=== PATIENT | male | born 1950 | race Caucasian/White ===

== ENCOUNTER 2020-03-01 20:33 | Outpatient (REF) | payer MEDICARE, SELFPAY ==
[2020-03-01 21:10] LABS: Bilirubin Negative (Negative); Blood Trace-intact (Negative); Clarity Clear (Clear); Glucose Negative (Negative); Ketones Negative (Negative); Leukocyte Esterase Negative (Negative); Nitrite Negative (Negative); Urobilinogen 0.2 EU/dL (Up TO 0.2); pH 6.5 (5-8)
[2020-03-01 21:19] LABS: Bacteria Negative HPF (Negative); Casts Negative LPF (Negative); Crystals Negative HPF (Negative); Epithelial Cells Rare HPF (Negative); Mucus Negative (Negative); RBC 0-2 HPF (0-2); WBC 0-2 HPF (0-5)
[2020-03-01 21:20] LABS: C & S Indicated? No
== END 2020-03-01 20:53 ==
LOC: NCHCN 20:33
PROVIDERS: PCP Family Medicine; Visit Provider Physician Assistant
DX: R31.21 Asymptomatic microscopic hematuria (principal)
CPT/HCPCS: 81003; 81015

== ENCOUNTER 2020-07-15 02:44 | Outpatient (CLI) | payer MEDICARE, SELFPAY ==
[2020-07-15 12:38] LABS: Abs Immature Grans 0.01 10^3/uL (0.0-0.06); Absolute Basophil Count 0.03 10^3/uL (0.0-0.2); Absolute Eosinophil Count 0.11 10^3/uL (0.0-0.7); Absolute Lymphocyte Count 1.17 10^3/uL (1.2-3.4); Absolute Monocyte Count 0.47 10^3/uL (0.1-0.8); Basophils % 0.6; HCT 50.8 % (40.0-50.0); HGB 16.8 g/dL (13.5-17.5); Immature Grans % 0.2; Lymphocytes % 21.7; MCHC 33.1 % (32.0-36.0); MCV 90.7 fL (80-95); Monocytes % 8.7; Neutrophils % 66.8; Nucleated RBC 0 %; Platelet Count 180 10^3/uL (130-400); RDW 13.2 % (11.8-14.1); RDW-SD 44.6 fL; WBC 5.39 10^3/uL (4.4-10.8)
[2020-07-15 13:04] LABS: ALT 25 U/L (16-63); AST 14 U/L (15-37); Albumin 3.7 g/dL (3.4-5.0); Alkaline Phosphatase 90 U/L (46-116); Anion Gap 7.1 mmol/L (3-11); BUN 18 mg/dL (7-18); Bilirubin, Total 0.6 mg/dL (0.2-1.0); CO2 29.9 mmol/L (21.0-32.0); CREATININE 1.08 mg/dL (0.70-1.30); Calcium 9.2 mg/dL (8.5-10.1); Chloride 107 mmol/L (98-107); Glucose 100 mg/dL (74-106); Potassium 4.3 mmol/L (3.5-5.1); Sodium 144 mmol/L (136-145); Total Protein 6.5 g/dL (6.4-8.2)
== END 2020-07-15 03:04 ==
PROVIDERS: PCP Family Medicine; Visit Provider Family Medicine
DX: F31.9 Bipolar disorder, unspecified (principal); Z79.899 Other long term (current) drug therapy
CPT/HCPCS: 36415; 80053; 85025

== ENCOUNTER 2022-07-27 12:28 | Outpatient (REF) | payer MEDICARE, SELFPAY ==
[2022-07-27 15:13] LABS: Abs Immature Grans 0.01 10^3/uL (0.0-0.06); Absolute Basophil Count 0.03 10^3/uL (0.0-0.2); Absolute Lymphocyte Count 1.15 10^3/uL (1.2-3.4); Absolute Monocyte Count 0.51 10^3/uL (0.1-0.8); Absolute Neutrophil Count 3.78 10^3/uL (1.2-6.7); Basophils % 0.5; Eosinophils % 1.8; HGB 16.6 g/dL (13.5-17.5); Immature Grans % 0.2; Lymphocytes % 20.6; MCH 30.1 pg (27.0-33.0); MCHC 34.6 % (32.0-36.0); MCV 87 fL (80-95); MPV 9.8 fL (8.0-11.0); Monocytes % 9.1; Neutrophils % 67.8; Platelet Count 185 10^3/uL (130-400); RBC 5.51 10^6/uL (4.36-5.78); RDW 12.8 % (11.8-14.1); RDW-SD 40.7 fL; WBC 5.58 10^3/uL (4.4-10.8)
[2022-07-27 15:37] LABS: ALT 19 U/L (16-63); AST 17 U/L (15-37); Albumin 3.9 g/dL (3.4-5.0); Alkaline Phosphatase 95 U/L (46-116); BUN 18 mg/dL (7-18); Bilirubin, Total 0.8 mg/dL (0.2-1.0); CREATININE 0.9 mg/dL (0.70-1.30); Calcium 9.3 mg/dL (8.5-10.1); Chloride 106 mmol/L (98-107); Estimated GFR 92.45 (mL/min/1.73m2); Glucose 102 mg/dL (74-106); Potassium 4.4 mmol/L (3.5-5.1); Sodium 141 mmol/L (136-145); Total Protein 6.5 g/dL (6.4-8.2)
[2022-07-27 17:03] LABS: VALPROIC ACID < 3 ug/mL
== END 2022-07-27 12:29 | disposition home or self-care (01) ==
LOC: NCHCN 12:28
PROVIDERS: Visit Provider Family Medicine
DX: F31.9 Bipolar disorder, unspecified (principal)
CPT/HCPCS: 80053; 80164; 85025

== ENCOUNTER 2024-07-07 02:38 | Outpatient (CLI) | payer MEDICARE, SELFPAY ==
[2024-07-07 12:29] LABS: Anion Gap 5.4 mmol/L (3-11); BUN 16 mg/dL (7-18); CO2 30.6 mmol/L (21.0-32.0); Calcium 9.3 mg/dL (8.5-10.1); Chloride 108 mmol/L (98-107); Estimated GFR 80.47 (mL/min/1.73m2); Glucose 103 mg/dL (74-106); HCT 48.5 % (40.0-50.0); HGB 16.5 g/dL (13.5-17.5); MCV 88 fL (80-95); MPV 9.6 fL (8.0-11.0); Platelet Count 158 10^3/uL (130-400); Potassium 4.4 mmol/L (3.5-5.1); RDW-SD 41.8 fL; Sodium 144 mmol/L (136-145); WBC 4.93 10^3/uL (4.4-10.8)
== END 2024-07-07 02:39 | disposition home or self-care (01) ==
LOC: LOS 02:38
PROVIDERS: PCP Family Medicine; Visit Provider Family Medicine
DX: R53.83 Other fatigue (principal); E87.1 Hypo-osmolality and hyponatremia
CPT/HCPCS: 36415; 80048; 85027

== ENCOUNTER → 2025-01-08 14:03 | Outpatient (BNVA) | payer MEDICARE, SELFPAY | PROVIDERS: PCP Family Medicine; Referring Provider Family Medicine; Visit Provider Surgery | DX: R22.1 Localized swelling, mass and lump, neck (principal) | CPT/HCPCS: 99203 ==

== ENCOUNTER 2025-02-10 07:02 | Day surgery (SDC) | payer MEDICARE, SELFPAY ==
--- NOTE | 2025-02-09 19:36 | HPE_ITS ---
Assessment and Plan Assessment and plan (1) Lipoma: Status: Acute Assessment and plan: We reviewed the plan for excision and closure of this likely lipoma. Kj had the opportunity to ask any new questions. He affirmed his informed consent today and we can proceed with excision as planned. History of Present Illness History of Present Illness Chief Complaint: neck lipoma Narrative: Kj is 74 years old, is here with a mass on the posterior central portion of his neck. It has been there for probably about a decade, and has increased in size over time. It is not exactly painful, but he does get a little bit of sharp neck discomfort when he turns and assumes some positions. He would like the mass excised PFSH All Active Problems Lipoma (Acute) Impacted cerumen (Acute) Depression (Chronic) Bipolar 1 disorder (Chronic 12/02/14) Suspect bipolar II, however Asymptomatic microscopic hematuria (Chronic) Glaucoma (Chronic) Tinnitus (Acute) Neck mass (Acute) Medical History Shingles (herpes zoster) polyneuropathy Family History Father Depression Social History Smoking/Tobacco Use Status: Never Smoking risk assessment performed?: Yes Alcohol Intake: current Alcohol Intake frequency: holidays/special occasions only Drug use: Never Substance use type: does not use Counseling given: No Adopted: No Caregiver/Support person: No Foster care: No Household members: spouse Housing: house Number of Children: 1 number of grandchildren: 0 Communication Needs: None Education Level: vocational Do you need help understanding health information?: Never Pets and animals: Yes (4) Pets and animals: dog(s) Do you think of yourself as: straight/heterosexual Current gender identity: male What is your relationship status?: How often do you talk on the phone with friends or family?: three or more times per week Do you belong to any clubs or organized social groups?: decline to answer Panel score (0-1 are the most socially isolated patients): 2 What type of physical activity do you participate in: weight lifting and other Details: hiking Duration: 45-60 minutes/day Frequency: daily Brenda/Religious: Congregational Special brenda needs: Yes (no animal testing + no fetus testing) Seatbelt use: always Drive intox or ride w/intox petrol tanker driver: No Do you feel safe at home: Yes Do you feel safe in your relationship?: Yes Meds Allergies and Home Medications Allergies Allergy/AdvReac Type Severity Reaction Status Date / Time aspirin Allergy Intermediate Rash if he Unverified 02/10/25 07:21 takes it when he has a virus Penicillins Allergy Intermediate Rash Unverified 02/10/25 07:21 lamotrigine AdvReac Severe Skin Rash Verified 02/10/25 07:21 Home Medications ?Medication ?Instructions ?Recorded ?Confirmed ?Type brimonidine 0.2 %-timolol 0.5 % 1 drp ophthalmic (eye) DAILY Eye 06/06/21 02/10/25 History eye drops (Combigan) pressure divalproex 250 mg tablet,delayed 250 mg PO TID #270 ta b-caps 07/01/24 02/10/25 Rx release (Depakote) Exam Const General: cooperative, healthy appearing and not in acute distress Neck Neck: normal visual inspection, no lymphadenopathy and supple Resp Effort & Inspection: normal respiratory effort Auscultation: clear to auscultation bilaterally Cardio Jugular venous pressure: no JVD Rate: regular rate Rhythm: regular rhythm Heart Sounds: S1 normal and S2 normal GI Inspection: normal to inspection Palpation: soft, no guarding, no hernias and nontender Percussion: normal to percussion Auscultation: normal bowel sounds Skin Other: Rubbery slightly mobile mass on the back of the neck. Neuro General: patient alert, patient awake and patient oriented x3 Psych Appearance: grossly normal
--- NOTE | 2025-02-09 19:40 | W.PM.DSUDISC ---
Date of service: 02/10/25 Discharge Plan Disposition Patient Disposition: Home Condition: Good Discharge Details Reason For Visit: lipoma excision Attending Provider: Jhon Smith Primary Care Provider: Fareed Cobos Home Meds and New Rx's Prescriptions: Continued divalproex [Depakote] 250 mg tablet,delayed release (DR/EC) 250 mg PO TID Qty: 270 3RF brimonidine-timolol [Combigan] 0.2-0.5 % drops 1 drp ophthalmic (eye) DAILY Discharge Instructions Additional Instructions: Kj, was great seeing you today, and I hope you feel well after the procedure. Things went very smoothly. I was able to remove this lipoma without much difficulty today. It did go down to the muscular layer, but was not actually involved in the muscles. As you can imagine, based on the size, there is a fair pocket left behind. I did my best to close all of this down with different layers of sutures, but I would not be surprised if you have some fluid that drains out from it over the next few days. You can leave this Band-Aid in place until tomorrow. At that point, remove it, and shower as you normally would. You should wash the incision with warm soapy water and pat it dry. Replacing a simple bandage in case there is any drainage over the next few days is very reasonable. If the incision does remain dry, then you do not necessarily need a Band-Aid in place. You should wash it at least once per day. I have gone ahead and made a follow-up visit in our office on the sixth at 10 AM. Expect to get some bruising over the incision in the next few days. That is extremely common and nothing to worry about. Ice packs over top of the bandages will also prove very helpful. If you need anything, or have any questions at all, please do not hesitate to ask, otherwise we look forward to seeing you in your postoperative visit. 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 Resume all of your regular medications. 2. Use ice packs over the icision to help with pain and swelling. 3. Alternate over the counter tylenol and ibuprofen every 6 hours. Then use as needed. 4. Leave bandage in place for 24 hours, then remove. 5. Shower with warm soapy water. Pat dry. Use a bandaid if needed to protect your clothing. 6. No soaking or tub baths until I see you in the office. 7. No heavy lifting until I see you in the office. 8. Call the office (or go directly to the emergency room after hours) if you notice any of the following: Develop chills (warm to touch), or if you have a thermometer and your temperature is above 101 Difficulty breathing or difficultly swallowing Persistent vomiting Any bleeding ? exceeding one tablespoon 9. Call your physician if the site where your intravenous was started becomes red, swollen, painful, and warm to touch. Referrals: Jhon Smith MD [ [facility] STAFF PHYSICIAN, Surgery] - 02/18/25 10:00 am Activity:: Activity as Tolerated Remove Dressings/Wound Care:: 24 hours Shower/Bathe:: 24 hours Diet:: As Tolerated Discharge Orders Discharge Orders: Discharge Order (Routine); Ordered 02/09/25 Ordered By: Jhon Smith DS: Diagnosis Discharge Diagnosis (1) Lipoma: Status: Acute Asessment and Plan: Outpatient follow-up for suture removal
--- NOTE | 2025-02-09 19:42 | ROE_ITS ---
Operative Note Operative Note PRE-OP DIAGNOSIS: Lipoma POST-OP DIAGNOSIS: same PROCEDURE: excision and closure of lipoma from neck SURGEON: Jhon Smith EXTRACTIONS TECHNOLOGIST: Lavinia Roman ANESTHESIA TYPE: Local By Surgeon and General LMA/ETT Refer to Anesthesia Record ESTIMATED BLOOD LOSS: 10 PATHOLOGY: other (Lipoma) COMPLICATIONS: None Patient was transported to: PACU Patient's condition: stable Indications: Kj is a 74-year-old male with what appears to be symptomatic lipoma at the base of his neck Findings: Serpiginous lipoma Procedure Description: I met with Kj and his in the preoperative area, and we reviewed the plan for surgery. He had the chance to ask any other questions. The agreed-upon site was marked, and then we moved back to the operating room. General endotracheal anesthesia was initiated on the stretcher, and Kj was rolled into the prone position on the OR table. He was padded and supported appropriately. All points of contact were checked and seemed safe. Small amount of hair was trimmed from the base of the neck to expose the surgical site. The neck was the n prepped and draped. I anesthetized the skin with local anesthetic establishing a generous field block. Next, over top of the lipoma, I made a 6 cm incision. I dissected down through the subcutaneous tissues sharply encountering the capsule of the lipoma. Careful dissection was performed around the edge to liberate it from the surrounding soft tissues. There were some serpiginous areas that extended slightly medially and inferiorly. Again, great care was taken to ensure that the entire lipoma was excised. It was passed off the field and will be sent to pathologist for permanent sectioning. Clinical features, however, did seem most most consistent with a lipoma. The site was then irrigated. It was hemostatic. Interrupted Vicryl stitches were used to obliterate the space, and the skin was closed with interrupted Prolene's prior to bandaging. Kj was then rolled back to the supine position, extubated, and transferred to the recovery unit. Date of Procedure: 02/10/25
--- NOTE | 2025-02-09 19:50 | ANES.PREOP_ITS ---
General Info Date of Service Date Performed: 02/10/25 Height: 5 ft 6.25 in Weight: 72.121 kg Body Mass Index (BMI): 25.4 Surgical Procedure: Operation Date: 02/10/25 08:40 Proposed Procedure Side Surgeon p Excision Lipoma on Neck Jhon Smith MD Meds Allergies and Home Medications Allergies Allergy/AdvReac Type Severity Reaction Status Date / Time aspirin Allergy Intermediate Rash if he Unverified 02/10/25 07:21 takes it when he has a virus Penicillins Allergy Intermediate Rash Unverified 02/10/25 07:21 lamotrigine AdvReac Severe Skin Rash Verified 02/10/25 07:21 Home Medication ?Medication ?Instructions ?Recorded brimonidine 0.2 %-timolol 0.5 % 1 drp ophthalmic (eye) DAILY Eye 06/06/21 eye drops (Combigan) pressure divalproex 250 mg tablet,delayed 250 mg PO TID #270 ta b-caps 07/01/24 release (Depakote) Current Visit Medications: Current Medications Generic Name Dose Route Start Last Admin Trade Name Shaylee PRN Reason Stop Dose Admin Acetaminophen 1,000 mg 02/10/25 06:00 Acetaminophen 500 Mg Tab PO 02/10/25 23:59 PREOP ARIK Gabapentin 600 mg 02/10/25 06:00 Gabapentin 300 Mg Cap PO 02/10/25 23:59 PREOP ARIK Ringer's Solution 1,000 mls @ 80 mls/hr 02/10/25 06:00 IV 02/10/25 23:59 INFUSION ARIK Cefazolin Sodium/Dextrose 2 gm in 50 mls @ 100 mls/hr 02/10/25 06:00 Ancef Duplex IVPB 02/10/25 23:59 PREOP ARIK IV Miscellaneous Supplies 1 each 02/10/25 06:00 Iv Access IV 02/10/25 23:59 DIRECTED ARIK Sodium Chloride 0 ml 02/10/25 06:00 Normal Saline Flush 10 Ml Syr IV 02/10/25 23:59 PRN PRN Sodium Chloride 0 ml 02/10/25 06:00 Normal Saline 10 Ml Vial IJ 02/10/25 23:59 DIRECTED PRN Sterile Water 0 ml 02/10/25 06:00 Water,Injection,Sterile 10 Ml Vial IJ 02/10/25 23:59 DIRECTED PRN Tramadol HCl 50 mg 02/09/25 19:43 Tramadol 50 Mg Tab PO 03/11/25 19:42 Q6H PRN PRN Pain PFSH Active Problems Active Problems: Problem Status Onset Code Lipoma Acute D17.9 Impacted cerumen Acute H61.20 Depression Chronic F32.A Bipolar 1 disorder Chronic 12/02/14 F31.9 Asymptomatic microscopic hematuria Chronic R31.21 Glaucoma Chronic H40.9 Tinnitus Acute H93.19 Neck mass Acute R22.1 Medical History Medical History Shingles (herpes zoster) polyneuropathy Tobacco Smoking/Tobacco Use Status: Never Passive smoking exposure: No Alcohol Alcohol Intake: current Alcohol intake frequency: holidays/special occasions only Substance Use Substance use: Never Vital Signs and Lab Results Vital Signs Most Recent Vital Signs in EMR: Temp Pulse Resp BP Pulse Ox 36 C L 80 16 179/78 H 99 02/10/25 07:05 02/10/25 07:05 02/10/25 07:05 02/10/25 07:05 02/10/25 07:05 Anesthesia Assessment and Plan Anesthesia History Personal History: Unknown Anesthesia History Family History: No Family History of Anesthesia Complications Exercise Tolerance Exercise Tolerance: Metabolic Equivalents>4 Cardiac & Pulmonary Exam Cardiac Exam: Normal S1/S2 Heart Sounds Pulmonary Exam: Clear Bilateral Breath Sounds Implantable Cardiac Device Does patient have a Pacemaker or an ICD?: No Airway Exam Known Difficult Airway: No Mallampati Class: 3 Mouth Opening: Normal (> 3cm) Thyromental Distance: Greater than 3 cm Neck Range of Motion: Full ROM Neck Circumference: Normal Teeth Condition: Normal Dentition ASA Classification ASA Score: ASA 2 Emergency Case?: No NPO Status NPO Status: NPO Clears >2 hours, Solids >8 hours Anesthesia Plan Resuscitation Status: Full Code Anesthesia Technique: General Anesthesia Airway Planned: Endotracheal Tube Monitors Used: Standard Monitors Preoperative Comments:: 74 yo male for neck mass removal. Sig PMHx: bipolar/depression, never smoker, occ EtOH.
[2025-02-10] VITALS (15 sets, daily range): BP systolic 103–179; BP diastolic 54–86; PULSE 55–80; RESP 13–18; TEMP 36–36.6; O2SAT 93–99; BMI 25.4
[2025-02-10] MEDS: Gabapentin 300 MG CAP 600 MG PO (07:25)
[2025-02-10] MEDS: Acetaminophen 500 MG TAB 1000 MG PO (07:25)
[2025-02-10] MEDS: Lactated Ringers 1,000 ML 80 ML IV (07:35)
[2025-02-10] MEDS: ceFAZolin 2 GM/50 ML BAG IVPB (09:30)
[2025-02-10] MEDS: Bupivacaine 0.25% Pres-Free W/EPI 30 ML VIAL (09:46)
--- NOTE | 2025-02-10 09:52 | SOFT_PTH ---
PATIENT: Benedict Guadalupe LOC: [facility] U#:[id number] AGE/SX: 74/M ROOM: RE02/10/[address]: Jhon Smith MD : 1950 BED: DIS: 02/10/2025 SPEC #: [id number] RECD: 02/10/25 12:39 STATUS: FIONA REQ #: [id number] ADAM: 02/10/25 09:[address]: Jhon Smith DEPT: Surgical Specimen RECD BY: Sonia Gan ENTERED: 02/10/25 12:40 SP TYPE: SOFT OTHR DR: Fareed Cobos MD Tissues: 1 - SOFT TISSUE MISC (INC. LIPOMA) Procedures: GROSS AND MICRO LEVEL 3 Comments: [id number]
--- NOTE | 2025-02-10 11:00 | W.ANESPOSTOP ---
Postoperative Evaluation Date, Time and Location Date Performed: 02/10/25 Time Performed: 11:00 Patient Location: PACU Vital Signs Most Recent Imported Vital Signs: Most Recent Vital Signs Temp Pulse Resp BP Pulse Ox 36.6 C 70 16 125/75 95 02/10/25 10:44 02/10/25 10:44 02/10/25 10:44 02/10/25 10:44 02/10/25 10:44 Pain Score Most Recent Pain Score: Most Recent Pain Score Pain Level 0 02/10/25 10:44 Assessment Mental Status: Awake (Alert & Oriented to Patient Baseline) Airway and Respiratory Function: Patent airway with normal (patient baseline) respiratory exam Cardiovascular Function: Hemodynamically Stable Hydration Status: Adequately Hydrated Nausea & Vomiting: No Nausea or Vomiting Pain: Pain is tolerable per patient Peripheral Nerve Block: Patient did not receive a nerve block
== END 2025-02-10 11:29 | disposition home or self-care (01) ==
LOC: SUR 07:02
PROVIDERS: PCP Family Medicine; Visit Provider Surgery
PROC: (CPT 21552; principal; 2025-02-10 08:30)
DX: D17.0 Benign lipomatous neoplasm of skin and subcutaneous tissue of head, face and neck (principal); F31.9 Bipolar disorder, unspecified
CPT/HCPCS: 21552; 88304; J0131; J0690; J1100; J1885; J2371; J2405; J2704

== ENCOUNTER → 2025-02-18 10:01 | Outpatient (BNVA) | payer MEDICARE, SELFPAY | PROVIDERS: PCP Family Medicine; Referring Provider Family Medicine; Visit Provider Surgery | DX: Z51.89 Encounter for other specified aftercare (principal); D17.9 Benign lipomatous neoplasm, unspecified ==